=== PATIENT | female | born 1975 | race African-American/Black ===

== ENCOUNTER 2017-04-09 09:30 | Emergency (ER) | payer OTHER ==
[~2017-04-09] VITALS: Ht 154.9 cm; Wt 49.9 kg
[~2017-04-09 09:30] MED LIST: ABILIFY PO; SEROQUEL PO; VICODIN 5/500 T1 TAB PO
== END 2017-04-09 10:10 | disposition home or self-care (01) ==
LOC: CFTX 09:30 → CED 09:30 → CFTX 10:02
DX: M54.5 Low back pain (principal); G89.29 Other chronic pain; I10 Essential (primary) hypertension; Z90.49 Acquired absence of other specified parts of digestive tract; Z88.0 Allergy status to penicillin; Z98.890 Other specified postprocedural states; F17.210 Nicotine dependence, cigarettes, uncomplicated
CPT/HCPCS: 96372; 99283; J1885